=== PATIENT | male | born 1945 | race Caucasian/White ===

== ENCOUNTER → 2021-09-15 | Outpatient (CLI) | payer MEDICARE ==
--- NOTE | 2021-09-16 07:48 | XR ---
EXAM TYPE: LUMBAR SPINE X RAY SERIES COMPARISON: 08/06/1999 HISTORY: Postop TECHNIQUE: 8 views are submitted including extension and flexion views. FINDINGS: Extensive postsurgical changes throughout the lumbar spine. Vascular calcifications noted. Multilevel degenerative disc disease noted at all levels. Anterior hypertrophic spurring and posterior spondylo sis. Suspect multilevel foraminal encroachment. There may be a slight anterolisthesis of L5 relative to S1 which appears similar flexion and extension views.. L5-S1 particularly limited due to osteopeni a and resolution IMPRESSION: 1. Postsurgical changes. Could not exclude an anterolisthesis of L5 relative to S1. Consider CT scan follow-up. 2. Multilevel foraminal encroachment and degenerative disc disease.
== END | disposition home or self-care (01) ==
LOC: RADXRMAIN 15:24
PROVIDERS: ATTEND Specialist
DX: M51.26 Other intervertebral disc displacement, lumbar region (principal); Z98.1 Arthrodesis status
CPT/HCPCS: 72114

== ENCOUNTER → 2021-11-26 | Outpatient (CLI) | payer MEDICARE ==
--- NOTE | 2021-11-26 16:33 | XR ---
Lumbar spine with flexion and extension views HISTORY: Arthrodesis 7 views of the lumbar spine submitted with flexion and extension views and correlated prior exam 09/15 There is no significant interval change. Posterior lumbar sacral fusion changes are again noted. Ther e is a slight spinal curvature. Alignment is unchanged. Laminectomies are present at L5. No evident s pondylolysis. No significant listhesis within the lumbar spine. Vacuum phenomenon present at L2-3 as on prior exam. Is multilevel spondylosis. Sclerosis in the posterior elements consistent with facet a rthropathy. Bone mineralization is reduced. Lumbar vertebral bodies show preserved height. Anterolist hesis grade 1 L5-S1 is stable. Atherosclerotic vascular calcifications are present along the aorta il iac distribution. IMPRESSION: Stable postoperative findings.
== END | disposition home or self-care (01) ==
LOC: RADXRMAIN 11:41
PROVIDERS: ATTEND Specialist
DX: Z98.1 Arthrodesis status (principal)
CPT/HCPCS: 72114